=== PATIENT | male | born 1990 | race Two or more races ===

== ENCOUNTER 2017-11-14 21:35 | Emergency (ER) | payer OTHER ==
[~2017-11-14] VITALS: Ht 170.2 cm; Wt 94.3 kg
[~2017-11-14 21:35] MED LIST: ULTRACET PO
== END 2017-11-14 22:57 | disposition home or self-care (01) ==
LOC: ER 21:35
DX: B34.9 Viral infection, unspecified (principal)

== ENCOUNTER 2018-08-27 08:31 | Outpatient (CLI) | payer OTHER | END 2018-08-27 09:47 | disposition home or self-care (01) | LOC: LAB 08:31 | DX: J11.1 Influenza due to unidentified influenza virus with other respiratory manifestations (principal); J11.89 Influenza due to unidentified influenza virus with other manifestations ==

== ENCOUNTER 2018-12-18 22:20 | Emergency (ER) | payer OTHER ==
[~2018-12-18] VITALS: Ht 175.3 cm; Wt 97.5 kg
== END 2018-12-18 23:02 | disposition home or self-care (01) ==
LOC: ER 22:20
DX: R25.8 Other abnormal involuntary movements (principal); T39.015A Adverse effect of aspirin, initial encounter; T39.315A Adverse effect of propionic acid derivatives, initial encounter; Y92.018 Other place in single-family (private) house as the place of occurrence of the external cause

== ENCOUNTER 2018-12-20 23:48 | Emergency (ER) | payer OTHER ==
[~2018-12-20] VITALS: Ht 172.7 cm; Wt 97.5 kg
== END 2018-12-21 04:37 ==
LOC: ER 23:48
DX: R51 Headache (principal)

== ENCOUNTER 2019-10-15 15:30 | Emergency (ER) | payer OTHER ==
[~2019-10-15] VITALS: Ht 172.7 cm; Wt 90.7 kg
== END 2019-10-15 22:55 | disposition home or self-care (01) ==
LOC: ER 15:30
DX: E86.0 Dehydration (principal); R00.2 Palpitations

== ENCOUNTER 2020-10-23 08:55 | Outpatient (CLI) | payer OTHER | END 2020-10-23 08:56 | disposition home or self-care (01) | LOC: LAB 08:55 | PROVIDERS: ATTEND Colon & Rectal Surgery | DX: Z03.818 Encounter for observation for suspected exposure to other biological agents ruled out (principal); Z11.52 Encounter for screening for COVID-19 ==

== ENCOUNTER 2020-11-01 08:53 | Outpatient (CLI) | payer OTHER | END 2020-11-01 11:05 | disposition home or self-care (01) | LOC: LAB 08:53 | PROVIDERS: ATTEND Emergency Medicine Pediatric Emergency Medicine | DX: Z03.818 Encounter for observation for suspected exposure to other biological agents ruled out (principal) ==

== ENCOUNTER 2020-11-06 11:15 | Emergency (ER) | payer OTHER ==
[~2020-11-06] VITALS: Ht 172.7 cm; Wt 93.0 kg
== END 2020-11-06 13:31 | disposition home or self-care (01) ==
LOC: ER 11:15
DX: R00.2 Palpitations (principal)

== ENCOUNTER 2020-11-10 07:12 | Outpatient (CLI) | payer OTHER | END 2020-11-10 15:00 | disposition home or self-care (01) | LOC: LAB 07:12 | PROVIDERS: ATTEND Emergency Medicine Pediatric Emergency Medicine | DX: Z03.818 Encounter for observation for suspected exposure to other biological agents ruled out (principal) ==

== ENCOUNTER 2020-11-16 08:00 | Outpatient (CLI) | payer OTHER | END 2020-11-16 08:30 | disposition home or self-care (01) | LOC: PPH VACUNA 08:00 | DX: Z23 Encounter for immunization (principal) ==

== ENCOUNTER 2025-03-15 11:19 | Emergency (ER) | payer OTHER ==
[~2025-03-15] VITALS: Ht 172.7 cm; Wt 90.7 kg
[2025-03-15] MEDS ORDERED: FAMOTIDINE/PF 20 MG/2 ML VIAL IV ONE (11:45)
[2025-03-15] MEDS ORDERED: ONDANSETRON HCL 2 MG/ML VIAL IV ONE (11:45)
[2025-03-15] MEDS ORDERED: CIPROFLOXACIN IN 5 % DEXTROSE 400 MG/200 ML PIGGYBAG IV ONE ×2 (11:45→12:20)
[2025-03-15] MEDS ORDERED: 0.9 % SODIUM CHLORIDE 1,000 ML IV ONE (11:45)
[2025-03-15] MEDS ORDERED: KETOROLAC TROMETHAMINE 30 MG VIAL IV ONE (11:45)
[2025-03-15] MEDS ORDERED: FAMOTIDINE/PF 20 MG/2 ML VIAL ONE (12:20)
[2025-03-15] MEDS ORDERED: ONDANSETRON HCL 2 MG/ML VIAL ONE (12:20)
[2025-03-15] MEDS ORDERED: KETOROLAC TROMETHAMINE 30 MG VIAL ONE (12:20)
[2025-03-15 13:00] LABS: BASO % 0.5 % (0.1-1.2); EOS # 0.00 (0.04-0.54); EOS % 0.0 % (0.7-7.0); LYMPH # 1.06 (1.18-3.74); LYMPH % 10.7 % (19.3-53.1); MEAN PLATELET VOLUME 9.00 fl (9.4-12.4); MONO # 0.46 (0.24-0.82); MONO % 4.7 % (4.7-12.5); NEUT # 8.24 (1.56-6.13); NEUT % 83.5 % (34.0-71.1); RED CELL DISTRIBUTION WIDTH 11.6 % (11.6-14.4)
[2025-03-15 13:28] LABS: INR 1.0
[2025-03-15 13:36] LABS: ALT/SGPT 46.0 U/L (12-78); AST/SGOT 27.0 U/L (15-37); BILIRUBIN TOTAL 0.46 mg/dL (0.3-1.2); BUN CREA RATIO 11.0 (7.0-25.0); CREATININE SERUM 0.93 mg/dL (0.70-1.30); GFR 92.46; GLOBULINA 3.8 G/DL (2.4-3.5); GLUCOSE FASTING 125.0 mg/dL (65-100); OSMOLALITY SERUM 274.0 MOSM/KG (275-295)
[2025-03-15 13:39] LABS: URINE APPEARANCE Clear; URINE BILIRRUBIN Negative (NEGATIVE); URINE BLOOD Negative; URINE COLOR Yellow; URINE GLUCOSE Negative (NEGATIVE); URINE KETONE Negative (NEGATIVE); URINE LEUKOCYTE Trace; URINE NITRATE Negative; URINE PROTEIN Negative (NEGATIVE); URINE UROBILINOGEN 0.2 E.U./dl
[2025-03-15 13:42] LABS: URINE BACTERIA 6.8 uL (0.0-1933); URINE WBC 13.5 uL (0.0-23.2)
[2025-03-15 14:02] LABS: URINE CAST 0.00 uL (0.0-1.40); URINE EPITHELIAL CELLS 0.9 uL (0.0-38.8); URINE RBC 0.7 uL (0.0-20.8)
[2025-03-15 14:35] VITALS: O2SAT 99
[2025-03-15] MEDS ORDERED: NIFEDIPINE 10 MG CAPSULE PO ONE ×2 (14:35→14:45)
[2025-03-15] MEDS ORDERED: COZAAR25 MG PO (14:43)
[2025-03-15] MEDS ORDERED: PROBIOTIC1 EAC2 PO (14:43)
[2025-03-15] MEDS ORDERED: METRONIDAZOLE500 MG PO (14:43)
[2025-03-15] MEDS ORDERED: PEPCID AC20 MG PO (14:43)
[2025-03-15] MEDS ORDERED: CIPRO500 MG PO (14:43)
[2025-03-15 16:22] VITALS: BP 160/99
== END 2025-03-15 16:23 | disposition home or self-care (01) ==
LOC: ER 11:20
PROVIDERS: General Practice
DX: K52.89 Other specified noninfective gastroenteritis and colitis (principal); R00.2 Palpitations